=== PATIENT | female | born 1945 | race Native Hawaiian/Other Pacific Islander ===

== ENCOUNTER 2017-01-09 08:29 | Outpatient (CLI) | payer OTHER, BC | END 2017-01-09 18:54 | disposition home or self-care (01) | LOC: RAD 08:29 → MAMMO 08:30 → RAD 09:00 | DX: Z12.31 Encounter for screening mammogram for malignant neoplasm of breast (principal); M85.88 Other specified disorders of bone density and structure, other site ==

== ENCOUNTER 2017-10-21 13:52 | Outpatient (CLI) | payer OTHER, BC ==
[2017-10-21 14:17] LABS: PLATELET COUNT 269 K/uL (152-353)
[2017-10-21 14:47] LABS: POTASSIUM 5.1 mmol/L (3.6-5.2)
== END 2017-10-21 20:25 | disposition home or self-care (01) ==
LOC: EDSTATUS 13:52 → LAB 13:52
PROVIDERS: Nurse Practitioner Family
DX: Z00.00 Encounter for general adult medical examination without abnormal findings (principal); R53.83 Other fatigue; R53.81 Other malaise; E55.9 Vitamin D deficiency, unspecified; E78.4 Other hyperlipidemia; R73.9 Hyperglycemia, unspecified
CPT/HCPCS: 80053; 80061; 82306; 83036; 84436; 84443; 85027

== ENCOUNTER 2017-11-05 09:18 | Outpatient (CLI) | payer OTHER, BC | END 2017-11-05 19:34 | disposition home or self-care (01) | LOC: US 09:18 | DX: R10.13 Epigastric pain (principal) ==